=== PATIENT | male | born 1950 | race Caucasian/White ===

== ENCOUNTER 2021-08-14 18:54 | Inpatient (IN) | payer OTHER ==
[~2021-08-14] VITALS: Ht 177.8 cm; Wt 99.6 kg
[2021-08-14 20:08] VITALS: BP 177/75; PULSE 105; TEMP 99.2
[2021-08-14] MEDS ORDERED: MOBIC 7.5MG7.5 MG PO (21:51)
[2021-08-14] MEDS ORDERED: ASPIRIN E.C. 8181 MG PO (21:51)
[2021-08-14] MEDS ORDERED: B-121000 MCG PO (21:51)
[2021-08-14] MEDS ORDERED: LANTUS100 U/ML SQ (21:52)
[2021-08-14] MEDS ORDERED: NOVOLOG FLEX100 U/ML SQ (21:52)
[2021-08-14] MEDS ORDERED: ZESTRIL 10MG10 MG PO (22:04)
[2021-08-14] MEDS ORDERED: PRINIVIL20 MG PO (22:04)
[2021-08-15 00:34] VITALS: BP 151/72; PULSE 83; TEMP 98.2
[2021-08-15 04:00] VITALS: BP 144/72; PULSE 81; TEMP 98.2
[2021-08-15 07:44] VITALS: BP 163/79; PULSE 90; TEMP 98.1
[2021-08-15 07:44] LABS: HEMATOCRIT 49.1 % (42.0-52.0); HEMOGLOBIN 16.3 g/dl (13.5-18.0); MEAN CELL VOLUME 93 fl (80.0-100.0); MEAN CORPUSCULAR HEMOGLOBIN 31 pg (27.0-31.0); MEAN CORPUSCULAR HGB CONC 33 g/dl (33.0-37.0); MEAN PLATELET VOLUME 11.9 fl (7.4-10.4); PLATELET COUNT 155 K/mm3 (130-400); RED BLOOD COUNT 5.31 M/mm3 (4.20-5.60); REDCELL DISTRIBUTION WIDTH-CV 14.6 % (11.5-14.5)
[2021-08-15 07:55] LABS: CREATININE, serum 1.12 mg/dL (0.72-1.25); POTASSIUM 4.4 mmol/L (3.5-4.5)
[2021-08-15 08:13] LABS: TROPONIN-I 0.032 ng/mL (0.00-0.033)
[2021-08-15 08:17] LABS: CHOLESTEROL RISK RATIO 2.7
[2021-08-15 08:39] LABS: BAND 6 % (0-10); LYMPHOCYTE 7 % (20.0-51.0); NEUTROPHILS 86 % (42.0-75.2); PLATELET ESTIMATE NORMAL (NORMAL)
--- NOTE | 2021-08-15 08:52 | NUR ---
Pt assessment copmlete. Pt sitting up in bed upon entry eating breakfast. He is A/O x4. His breathing is even and unlabored on 2L O2 via NC. Pt states he feels much better than yesterday. Has a clear productive cough. No pain at this time. Call light within reach.
[2021-08-15 12:10] VITALS: BP 155/65; PULSE 94; TEMP 97.8
--- NOTE | 2021-08-15 14:16 | NUR ---
SW met with patient to complete intake. Patient states that he lives in [place] alone and his point of contact is his jen Major. He states that he utilizes a walker, and independent with ADL's. Patient states that his PCP is Dr. Cortez and pharmacy is [facility]. Patiene states that he does not have a DPOA nor does he wish to appoint anyone at this time. Patient states that his plan is to return home up on DC, and does not have any concerns with doing so. SW will continue to follow. DC Plan: Home
[2021-08-15 15:11] LABS: HEMATOCRIT 49.3 % (42.0-52.0); HEMOGLOBIN 16.1 g/dl (13.5-18.0); MEAN CELL VOLUME 94 fl (80.0-100.0); MEAN CORPUSCULAR HEMOGLOBIN 31 pg (27.0-31.0); MEAN CORPUSCULAR HGB CONC 33 g/dl (33.0-37.0); MEAN PLATELET VOLUME 11.1 fl (7.4-10.4); PLATELET COUNT 167 K/mm3 (130-400); RED BLOOD COUNT 5.24 M/mm3 (4.20-5.60); REDCELL DISTRIBUTION WIDTH-CV 14.9 % (11.5-14.5)
[2021-08-15 15:27] LABS: CALCIUM 9.1 mg/dL (8.4-10.2); CREATININE, serum 1.31 mg/dL (0.72-1.25); POTASSIUM 4.6 mmol/L (3.5-4.5)
[2021-08-15 15:30] LABS: INR 1.1 (0.8-3.0)
[2021-08-15 15:31] LABS: PARTIAL THROMBOPLASTIN TIME 29.7 SECONDS (26.0-37.0)
[2021-08-15 16:26] VITALS: BP 176/73; PULSE 106; TEMP 98.8
[2021-08-15 18:12] VITALS: BP 135/59; PULSE 92
--- NOTE | 2021-08-15 18:13 | NUR ---
Pt rested in bed through the day. Had a good appetite, discussed NPO at midnight with patient. He denied any chest pains or increased SOB. On 2.5L O2 via NC. No needs at this time. Call light within reach.
[2021-08-16] VITALS (11 sets, daily range): BP systolic 105–174; BP diastolic 22–84; PULSE 87–108; TEMP 97.7–98.5
--- NOTE | 2021-08-16 09:46 | NUR ---
Initial visit; Patient thanked Medical Information Officer for looking in on him and offering God's blessings.
[2021-08-16 10:33] LABS: BASO % 0.1 % (0.0-2.0); GRAN # 14.9 K/mm3 (1.4-6.5); GRAN % 89.8 % (42.2-75.2); HEMATOCRIT 45.9 % (42.0-52.0); LYMPH # 0.8 K/mm3 (1.2-3.4); LYMPH % 4.6 % (20.0-51.0); MEAN CELL VOLUME 93 fl (80.0-100.0); MEAN CORPUSCULAR HEMOGLOBIN 30 pg (27.0-31.0); MEAN CORPUSCULAR HGB CONC 33 g/dl (33.0-37.0); MEAN PLATELET VOLUME 11.2 fl (7.4-10.4); MONO # 0.8 K/mm3 (0.1-0.6); MONO % 4.7 % (1.7-9.3); PLATELET COUNT 173 K/mm3 (130-400); RED BLOOD COUNT 4.93 M/mm3 (4.20-5.60); REDCELL DISTRIBUTION WIDTH-CV 15.2 % (11.5-14.5)
[2021-08-16 10:52] LABS: CALCIUM 8.7 mg/dL (8.4-10.2); CREATININE, serum 1.17 mg/dL (0.72-1.25); MAGNESIUM 2.4 mg/dL (1.6-2.6); POTASSIUM 4.5 mmol/L (3.5-4.5)
--- NOTE | 2021-08-16 12:20 | NUR ---
CALLED BARBARA RUANO WITH BS RESULT, ORDERED TO HOLD INSULIN UNTIL AFTER SURYA THEN RECHECK SUGAR AND ADMINISTER CORRECT INSULIN
--- NOTE | 2021-08-16 12:22 | NUR ---
PT TAKEN TO [facility]
--- NOTE | 2021-08-16 14:18 | NUR ---
I[employer]ation Marble Mechanic collaborated with SHOBHA ChristopherCM as this patient is listed as self pay, however mentioned that [facility]. Candi advised [facility] [facility] has been notified.
--- NOTE | 2021-08-16 14:19 | NUR ---
MENTIONED THAT THE ONLY REASON HE TOOK HIS ASPIRIN, ATORGVASTATIN OR LISINOPRIL YESTERDAY WAS BECAUSE SHE FORCED HIM TO. SHE STATES HE ONLY NORMALLY TAKES GABAPENTIN, TIZANIDINE, PERCOCET, AMBIEN AND SERTRALINE. PT REQUESTING PAIN MEDICATIONS. PT STATES HE ONLY HAS "A BEER OR TWO EVERY OTHER DAY, HE CUT BACK".
--- NOTE | 2021-08-16 14:28 | NUR ---
DR. CUNNINGHAM ORDERED TO LET PT EAT AND HE WILL GET A CATH TOMORROW
--- NOTE | 2021-08-16 17:37 | NUR ---
PT UNDERWENT SURYA TODAY, CAME BACK POSITIVE. PT INFORMED OF RESULTS, WILL UNDERGO HEART CATH TOMORROW. PT INFORMED WILL BE NPO AT MIDNIGHT. PT PLEASANT ALL DAY, TOOK ALL MEDICATIONS AND ENGAGED IN THERAPY. PT SITTING UPRIGHT WITH CALL LIGHT IN REACH, ALL NEEDS ADDRESSED. PT HAS NO COMPLAINTS.
--- NOTE | 2021-08-16 22:23 | NUR ---
Patient pleasant, A/Ox4. Patient denies chest pain, SOB, headache, or N/V. Patient currently on oxygen 2L via NC. Breathing even and unlabored. No acute distress noted. All scheduled meds given per MAR. Informed patient of NPO from midnight for cardiac cath tomorrow. Patient verbalized understanding. Call light in reach. Will continue to monitor.
[2021-08-17] VITALS (18 sets, daily range): BP systolic 118–166; BP diastolic 75–113; PULSE 82–96; TEMP 97.6–98.1
--- NOTE | 2021-08-17 05:28 | NUR ---
Patient has been on NPO since midnight. Patient slept well. No acute distress noted throughout the night. Call light in reach.
[2021-08-17 07:53] LABS: HEMATOCRIT 50.1 % (42.0-52.0); HEMOGLOBIN 16.3 g/dl (13.5-18.0); MEAN CELL VOLUME 94 fl (80.0-100.0); MEAN CORPUSCULAR HEMOGLOBIN 31 pg (27.0-31.0); MEAN CORPUSCULAR HGB CONC 33 g/dl (33.0-37.0); MEAN PLATELET VOLUME 10.9 fl (7.4-10.4); PLATELET COUNT 167 K/mm3 (130-400); RED BLOOD COUNT 5.31 M/mm3 (4.20-5.60)
--- NOTE | 2021-08-17 12:43 | NUR ---
Pt arrived back to the unit from construction laborer. Radial band inflated to R wrist, no active bleeding visualized. Pt denies any pain currently. Pt did require 5L O2 via NC to keep sat's up. POC discussed with patient, call light within reach.
[2021-08-17 13:10] LABS: CALCIUM 9.1 mg/dL (8.4-10.2); MAGNESIUM 2.6 mg/dL (1.6-2.3); POTASSIUM 4.9 mmol/L (3.4-5.0)
--- NOTE | 2021-08-17 15:37 | NUR ---
TOOK 7 ML OF AIR FROM RIGHT RADIAL COMPRESSION BAND, NO BLEEDING AT PUNCTURE SITE, NO HEMATOMA NOTED. COMPRESSION BAND REMOVED, BANDAID PLACED OVER SITE. PT TOLERATED WELL, LYING DOWN GETTING SLEEP. NOTIFIED OF ANY SIGNS OF BLEEDING FROM SITE TO NOTIFY IMMEDIATELY.
--- NOTE | 2021-08-17 16:22 | NUR ---
Chemical Etch Operator followed up with patient about PT recommendation for Home Health. Patient advised he currently receives HH services from [facility] and would like to continue with them. MOIRA contacted [facility] and faxed updates. MOIRA was advised they utilize patient's VA benefits, so it takes some time to get services started. Tara advised that if MOIRA sent orders, they would submit to the [facility] for approval. Patient is also requiring oxygen at this time but does not have it set up at home. MOIRA will continue to monitor.
--- NOTE | 2021-08-17 18:08 | NUR ---
PT HAS BEEN PLEASANT ALL DAY, CALLING [place] TO GET HIS CARE AND INSURANCE STRAIGHTENED. INVOLVED WITH CARE AND SOCIAL WORK TO MAKE SURE EVERYTHING IS GOOD. PT HAS HAD DIFFICULTY KEEPING NC IN NOSE THROUGHOUT SHIFT. KEPT REPLACING NC AND REMINDING PT OF NEED FOR O2 AND DEEP BREATHING TO HELP HIS O2 SATS. PT UNDERWENT HEART CATH TODAY AND NO INTERVENTIONS WERE DONE. WILL HAVE ANOTHER HEART CATH IN MORNING TO ATTEMPT INTERVENTIONS. PT TOLERATED PROCEDURE WELL. NORMAL APPETITE RESUMED. PT WILL RETURN BACK NPO AT MIDNIGHT. PT INFORMED OF THIS AND UNDERSTANDS. PT LAYING IN BED WATCHING TV, NO COMPLAINTS OF PAIN OR SOB. WILL CONTINUE TO MONITOR
--- NOTE | 2021-08-17 23:38 | NUR ---
Patient very pleasant, alert and oriented. Patient denies any pain or discomfort. Patient currently on 5.5 L oxygen via high flow NC. Breathing even and unlabored. Patient denies SOB or dyspnea. Right radial heart cath site C/D/I. Right arm remains on sling. IVF infusing to left wrist iV site per JAN. All scheduled meds given per JAN. Informed patient of NPO from midnight for heart cath tomorrow. Patient verbalized understanding. Call light in reach. Will continue to monitor.
[2021-08-18] VITALS (22 sets, daily range): BP systolic 111–171; BP diastolic 74–128; PULSE 73–89; TEMP 97.5–98.5
--- NOTE | 2021-08-18 06:27 | NUR ---
Patient on NPO from midnight for cardiac cath today. Patient remains on 6L oxygen over the night. VS stable. No acute distress noted throughout the night. Call light in reach.
[2021-08-18 07:37] LABS: HEMATOCRIT 49.3 % (42.0-52.0); HEMOGLOBIN 16.1 g/dl (13.5-18.0); MEAN CELL VOLUME 94 fl (80.0-100.0); MEAN CORPUSCULAR HEMOGLOBIN 31 pg (27.0-31.0); MEAN CORPUSCULAR HGB CONC 33 g/dl (33.0-37.0); MEAN PLATELET VOLUME 11.2 fl (7.4-10.4); PLATELET COUNT 158 K/mm3 (130-400); RED BLOOD COUNT 5.25 M/mm3 (4.20-5.60); REDCELL DISTRIBUTION WIDTH-CV 14.6 % (11.5-14.5)
[2021-08-18 07:50] LABS: INR 1.1 (0.8-3.0); PROTHROMBIN TIME 12.3 SECONDS (9.7-12.8)
[2021-08-18 07:52] LABS: CALCIUM 9.1 mg/dL (8.4-10.2); CREATININE, serum 1.09 mg/dL (0.72-1.25); PARTIAL THROMBOPLASTIN TIME 26.9 SECONDS (26.0-37.0); POTASSIUM 4.9 mmol/L (3.5-4.5)
[2021-08-18 08:05] LABS: BAND 5 % (0-10); LYMPHOCYTE 7 % (20.0-51.0); NEUTROPHILS 88 % (42.0-75.2); PLATELET ESTIMATE NORMAL (NORMAL)
--- NOTE | 2021-08-18 08:18 | NUR ---
CONSENT OBTAINED FROM PT, ASPIRIN GIVEN, FLUIDS HUNG, PATIENT TAKEN DOWN FOR OFFENDER JOB RETENTION SPECIALIST
--- NOTE | 2021-08-18 08:20 | NUR ---
fluids hung, aspirin given, new consent obtained for heart cath, pt aox4, taken down for heart cath
--- NOTE | 2021-08-18 10:24 | NUR ---
PT MOVING DURING BP READING, PT GOT BREAKFAST AND WAS IN A HURRY TO EAT.
--- NOTE | 2021-08-18 11:28 | NUR ---
PT WENT DOWN TO HEART CATH AT 0830. SAME PUNCTURE SITE HEART CATH YESTERDAY. PT IS STABLE. NO NEEDS
--- NOTE | 2021-08-18 12:40 | NUR ---
PT COMPRESSION BAND DEFLATED 6 ML TOTAL. 10 ML REMAINING. NO BLEEDING NOTED
--- NOTE | 2021-08-18 13:57 | NUR ---
NOTICED SOME FIRMNESS WITH SLIGHT BRUISING PROXIMAL TO SITE. NO OOZING, BLEEDING FROM PUNCTURE SITE. NOTIFYING LAYOUT TECHNICIAN FOR GUIDANCE, WILL CONTINUE TO MONITOR. PT DENIES PAIN
--- NOTE | 2021-08-18 14:16 | NUR ---
BRUISING AND FIRMNESS NOTED PROXIMAL TO RADIAL BAND. NONTENDER, PULSES GOOD, CUNNINGHAM NOTIFIED AND ORDERED TO INFLATE BAND TO 12ML AND MONITOR FOR ONE HOUR BEFORE ATTEMPTING TO DELFATE AGAIN. MARKED HEMATOMA IN MARKER TO ASSESS ANY CHANGE. [place] FROM STREET FLUSHER DRIVER ARRIVED TO ALSO ASSESS SITE. WILL CALL WITH CHANGES
--- NOTE | 2021-08-18 14:30 | NUR ---
CHECKED RADIAL COMPRESSION SITE FOR HEMATOMA SIZE. HAS NOT PROGRESSED PAST THE MARKED BORDERS. WILL CONTINUE TO MONITOR
--- NOTE | 2021-08-18 14:48 | NUR ---
HEMATOMA SITE HAS NOT ENLARGED, SEEMS TO BE SOFTENING SLIGHTLY, WILL CONTINUE TO MONITOR PER PROVIDER'S ORDERS
--- NOTE | 2021-08-18 15:30 | NUR ---
4 mls total removed since last removal of air. hematoma unchanged. pulses good, fingertips blanchable, denies pain
--- NOTE | 2021-08-18 16:10 | NUR ---
4mls left in band, site soft to palpation, hematoma stable, unchanged, pulses good,
--- NOTE | 2021-08-18 16:24 | NUR ---
3 MORE MLS REMOVED FROM BAND, SITE SAME LAST ASSESSMENT
--- NOTE | 2021-08-18 16:44 | NUR ---
BAND FULLY DEFLATED, PT DENIES TENDERNESS, SITE SAME LAST ASSESSMENT
--- NOTE | 2021-08-18 18:03 | NUR ---
PT NPO AT MIDNIGHT, UNDERWENT HEART CATH THIS MORNING, 2 STENTS PLACED. PT RETURNED TO UNIT, AWAKE AND ALERT. PT ATE BREAKFAST AND HAD RIGHT RADIAL COMPRESSION BAND IN PLACE. MONITORED EVERY 15 MINUTES, VITALS REMAINED STABLE. AFTER DEFLATING 6 ML FROM BAND, HEMATOMA NOTICED PROXIMAL TO PUNCTURE SITE. NOTIFIED DR AND GOT FURTHER INSTRUCTIONS. NOTED THE SIZE OF HEMATOMA AND CONTINUED TO MONITOR AFTER REINFLATING 2 ML TO BAND. IV DISLODGED WHILE BEING AMBULATED BY PT. GUAZE PLACED, AND IV PLACED IN LEFT HAND. SLOWLY DEFLATED COMPRESSION BAND TIL 0 ML LEFT. COMPRESSION BAND STILL IN PLACE. PT HAS BEEN DECREASED TO 4 L OF O2. RT EXERCISE THERAPY WILL BE DONE IN MORNING FOR O2 REQUIREMENTS. PT HAS BEEN PLEASANT ALL DAY, REMINDED SEVERAL TIMES OVER CARE PLAN FOR HIM MOVING FORWARD. CALL LIGHT WITHIN REACH, ALL NEEDS MET.
--- NOTE | 2021-08-18 22:03 | NUR ---
Patient assessed. Denies having pain and discomfort. Peripheral INT to left hand. Denies pain and discomfort. Denies SOB and dypnea. LS CTA in upper lobes, diminished in lower. On oxygen at 4 L/min via NC. HRR. Heart cath site to right wrist. No change in hematoma to site. Dressnig to left foot changed. Ulcer to left plantar and and left foot. Denies pain and discomfort to site. Patient voices no questions, needs, or concerns at this time. Resting in bed with call light within reach.
[2021-08-19 05:23] VITALS: BP 133/90; PULSE 73; TEMP 98
--- NOTE | 2021-08-19 05:49 | NUR ---
Patient has voiced no questions, needs, or concerns this shift. Continues on oxygen at 4 L/min via NC. Has denied pain and discomfort. Resting in bed with call light within reach.
[2021-08-19 06:48] LABS: BASO % 0.2 % (0.0-2.0); EOS % 0.3 % (0-4.0); GRAN # 8.3 K/mm3 (1.4-6.5); GRAN % 71.8 % (42.2-75.2); HEMATOCRIT 50.6 % (42.0-52.0); HEMOGLOBIN 16.5 g/dl (13.5-18.0); MEAN CELL VOLUME 93 fl (80.0-100.0); MEAN CORPUSCULAR HEMOGLOBIN 30 pg (27.0-31.0); MEAN CORPUSCULAR HGB CONC 33 g/dl (33.0-37.0); MEAN PLATELET VOLUME 11.2 fl (7.4-10.4); MONO # 1.1 K/mm3 (0.1-0.6); MONO % 9.9 % (1.7-9.3); PLATELET COUNT 159 K/mm3 (130-400); RED BLOOD COUNT 5.42 M/mm3 (4.20-5.60); REDCELL DISTRIBUTION WIDTH-CV 14.5 % (11.5-14.5)
[2021-08-19 07:02] LABS: POTASSIUM 4.2 mmol/L (3.5-4.5)
--- NOTE | 2021-08-19 08:00 | NUR ---
PATIENT IS A&O. VSS WITH OXYGEN AT 4L TO KEEP SATS IN MID 90'S. DENIES COMPLAINTS. HEAD TO TOE ASSESSMENT COMPLETE, SEE CHARTING. STUDENT NURSE WORKING WITH PATIENT AND GIVING AM MEDS, SEE CHARTING. LEFT HAND IV TO INT. NO OTHER NEEDS. CALL LIGHT IN REACH.
[2021-08-19 08:24] VITALS: BP 102/82; PULSE 72; TEMP 97.5
--- NOTE | 2021-08-19 09:08 | NUR ---
Introduced self to patient, respiratory was finishing up treatment upon my arrival. Pt alert and oriented, pleasant, assited with ordering breakfast, held morning insulin until breakfast arrived due to BG 84 @ 0530. RN aware and agrees. Pt not in apparent distress, has no questions at this time. Call light within reach. Pt eating breakfast and watching TV.
[2021-08-19] MEDS ORDERED: LIPITOR 80MG80 MG PO (11:10)
[2021-08-19] MEDS ORDERED: RT SPIRIVA18 MCG IH (11:10)
[2021-08-19] MEDS ORDERED: LOPRESSOR 225 MG/TAB PO (11:10)
[2021-08-19] MEDS ORDERED: MEDROL 4MG DOSPA4 MG PO (11:10)
[2021-08-19] MEDS ORDERED: IMDUR 30MG30 MG/TAB PO (11:10)
[2021-08-19] MEDS ORDERED: PLAVIX 75MG TAB75 MG PO (11:10)
[2021-08-19] MEDS ORDERED: COZAAR 25MG25 MG/TAB PO (11:10)
[2021-08-19] MEDS ORDERED: OMNICEF 300MG300 MG PO (11:10)
[2021-08-19] MEDS ORDERED: PROAIR HFA0.09 MG/AC IH (11:10)
[2021-08-19 13:04] VITALS: BP 116/74; PULSE 74; TEMP 98.6
--- NOTE | 2021-08-19 14:04 | NUR ---
Primary nurse was assisted with [phone] patient care by [employer] student Kassie Estrada and [employer] instructor Sydnie Garcia MSN, RN
[2021-08-19 15:17] VITALS: BP 88/65; PULSE 88; TEMP 98.3
--- NOTE | 2021-08-19 16:02 | NUR ---
Member Of The Legislative Council made several unsucessful attempts to contact the [facility]. MOIRA then contacted the [employer] and was advised that the normal coordinator is out and SW would need to contact the [facility] at ph#[phone] ext [phone]. MOIRA contacted this number and left a message. MOIRA received a message back that records and orders would need to be faxed to fax#[phone]. MOIRA faxed to this number. MOIRA met with patient and provided update on oxygen needs. MOIRA contacted [facility] to inquire about ordering oxygen through patient's medicare beneifts. Radha at [facility] advised that since they do not accept VA benefits, even with Medicare, patient would owe 20% out of pocket monthly. Radha advised patient would likely be 100% covered if he utilized his VA benefits throught the [place] oxygen provider. Discharge plan: Home with home health and new home oxygen
[2021-08-19 16:15] VITALS: BP 116/66
[2021-08-19 20:07] VITALS: BP 111/70; PULSE 78; TEMP 98
--- NOTE | 2021-08-19 20:44 | NUR ---
Patient assessed. Denies pain and discomfort. Peripheral INT to left hand. Right radial heart cath site-bandaid CDI, denies pain and discomfort. Continues on oxygen at 3 L/min via NC. Denies SOB and dyspnea. LS CTA in upper lobes, diminished in lower. Respirations even and unlabored. Voices no questions, needs, or concerns at this time. Resting in bed with call light within reach.
[2021-08-20 00:28] VITALS: BP 124/79; PULSE 74; TEMP 98
[2021-08-20 04:54] VITALS: BP 126/80; PULSE 74; TEMP 98
--- NOTE | 2021-08-20 06:02 | NUR ---
Patient has been resting in bed with call light within reach. Voices no questions, needs, or concerns at this itme. Has denied having pain and discomfort this shift.
--- NOTE | 2021-08-20 07:00 | NUR ---
Report received from SUNDAR Lott. Pt in bed resting, francis regalado will continue to monitor.
[2021-08-20 07:16] LABS: BASO % 0.1 % (0.0-2.0); EOS # 0.1 K/mm3 (0.0-0.7); EOS % 0.5 % (0-4.0); GRAN # 7.2 K/mm3 (1.4-6.5); GRAN % 72.6 % (42.2-75.2); HEMATOCRIT 50.8 % (42.0-52.0); HEMOGLOBIN 16.5 g/dl (13.5-18.0); LYMPH # 1.6 K/mm3 (1.2-3.4); LYMPH % 16.1 % (20.0-51.0); MEAN CELL VOLUME 94 fl (80.0-100.0); MEAN CORPUSCULAR HEMOGLOBIN 30 pg (27.0-31.0); MEAN CORPUSCULAR HGB CONC 33 g/dl (33.0-37.0); MEAN PLATELET VOLUME 10.9 fl (7.4-10.4); MONO % 9.9 % (1.7-9.3); PLATELET COUNT 152 K/mm3 (130-400); RED BLOOD COUNT 5.42 M/mm3 (4.20-5.60); REDCELL DISTRIBUTION WIDTH-CV 14.4 % (11.5-14.5)
[2021-08-20 07:33] LABS: CALCIUM 9.1 mg/dL (8.4-10.2); CREATININE, serum 1.05 mg/dL (0.72-1.25); POTASSIUM 4.4 mmol/L (3.5-4.5)
[2021-08-20 09:14] VITALS: BP 100/67; PULSE 90; TEMP 98
--- NOTE | 2021-08-20 09:46 | NUR ---
lEFT HAND iv SITE LEAKING BLOOD FROM INSERTION SITE DURING ROUTINE PATENCY CHECK PRIMARY NURSE Florian rn NOTIFIED.
--- NOTE | 2021-08-20 10:00 | NUR ---
Assessment charted. Pt in bed resting, anticpating dishcarge today. INt to LH. Denies pain. L foot ulcers dressed per wound care recs outpatient. Will conitnue to monitor.
[2021-08-20 12:29] VITALS: BP 112/70; PULSE 72; TEMP 97.7
--- NOTE | 2021-08-20 14:05 | NUR ---
Primary nurse was assisted with [phone] patient care by [employer] [facility] Teresa Aguila and [employer] [employer] instructor Sydnie Garcia MSN, RN
--- NOTE | 2021-08-20 14:54 | NUR ---
O2 order [facility] to [facility]. Tanked dropped off at the hospital and 12 additional tanks taken to his apartment. Patient contacted his landlord to open the door for the delivery. Patient has reached out to a friend of his to arrange a transport back to his apartment which should be here around 1700.
--- NOTE | 2021-08-20 15:52 | NUR ---
[facility] orders faxed to [facility].
--- NOTE | 2021-08-20 17:25 | NUR ---
Discharge teaching completed at this time. Pt received 02 delivery and educated o nhow to use it. Pt able to ambulate down via walker with all bleongings. INT dc'd, tip intact. Pt received packet, reviewed scripts, f/u appointments, answered questions. Friend to drive home, criteria met.
--- NOTE | 2021-08-24 13:31 | NUR ---
ice cream vault worker contacted [facility] to verify that they got the patient's orders. Orders were received and the patient was seen on 08/22.
== END 2021-08-20 17:00 | disposition home or self-care (01) | DRG 246 ==
LOC: SDCO 18:54 → MEDICAL 18:54 → SDCO 18:55 → MEDICAL 18:55
PROVIDERS: Internal Medicine Cardiovascular Disease; Nurse Practitioner Family; Physician Assistant; ADMIT Student in an Organized Health Care Education/Training Program
PROC: 027135Z Dilation of Coronary Artery, Two Arteries with Two Drug-eluting Intraluminal Devices, Percutaneous Approach (ICD-10-PCS; principal; 2021-08-14)
PROC: 4A023N7 Measurement of Cardiac Sampling and Pressure, Left Heart, Percutaneous Approach (ICD-10-PCS; 2021-08-14)
PROC: B2111ZZ Fluoroscopy of Multiple Coronary Arteries using Low Osmolar Contrast (ICD-10-PCS; 2021-08-14)
PROC: 5A0935A Assistance with Respiratory Ventilation, Less than 24 Consecutive Hours, High Flow/Velocity Cannula (ICD-10-PCS; 2021-08-14)
DX: I11.0 Hypertensive heart disease with heart failure (principal); J18.9 Pneumonia, unspecified organism; I21.A1 Myocardial infarction type 2; J96.01 Acute respiratory failure with hypoxia; I50.21 Acute systolic (congestive) heart failure; J44.1 Chronic obstructive pulmonary disease with (acute) exacerbation; J44.0 Chronic obstructive pulmonary disease with (acute) lower respiratory infection; I25.119 Atherosclerotic heart disease of native coronary artery with unspecified angina pectoris; E11.9 Type 2 diabetes mellitus without complications; F17.210 Nicotine dependence, cigarettes, uncomplicated; I16.0 Hypertensive urgency; I34.0 Nonrheumatic mitral (valve) insufficiency; T38.0X5A Adverse effect of glucocorticoids and synthetic analogues, initial encounter; Z79.4 Long term (current) use of insulin; Z79.82 Long term (current) use of aspirin
CPT/HCPCS: 99223-AI; 99232-AI; 99233-AI; 99239; A9284; A9500; C1725; C1769; C1874; C1887; C9600; J0456; J0583; J0690; J0696; J1644; J1650; J1815; J2250; J2785; J2920; J3010; J7030; J7050; J7512; Q9967